=== PATIENT | female | born 1945 | race African-American/Black ===

== ENCOUNTER 2022-11-05 13:55 | Outpatient (CLI) | payer MEDICARE | END 2022-11-05 13:56 | disposition home or self-care (01) | LOC: BICRAD 13:55 | PROVIDERS: ATTEND Podiatrist | DX: R26.9 Unspecified abnormalities of gait and mobility (principal); M19.071 Primary osteoarthritis, right ankle and foot | CPT/HCPCS: 36415; 84550 ==